=== PATIENT | female | born 1990 | race Caucasian/White ===

== ENCOUNTER 2021-11-03 05:10 | Emergency (ER) | payer MEDICAID ==
[~2021-11-03] VITALS: Ht 172.7 cm; Wt 83.9 kg
--- NOTE | 2021-11-03 05:30 | NUR ---
LYNDON GERMAN FOR COCCYX EXAM.
[2021-11-03] MEDS ORDERED: IV NORMAL SALINE 1000 ML BAG IV ONE (05:45)
[2021-11-03] MEDS ORDERED: VANCOMYCIN 1G/D5W 200 ML PIGGYBACK IV ONE (05:45)
[2021-11-03] MEDS ORDERED: KETOROLAC TROMETHAMINE 30 MG INJ IVP ONE (05:45)
--- NOTE | 2021-11-03 06:03 | NUR ---
Patient A/Ox4, patient ambulated with steady gait. Patient came for c/o lower extremity swelling and abscess in coccyx area with weeping. Patient reports IV drug abuse in the past but has recently stopped. Patient in bed at lowest position, sr upx2, call light within reach. Fall and safety precautions implemented per protocol.
[2021-11-03 06:34] LABS: HEMATOCRIT 30.3 % (31.2-41.9); MEAN CORPUSCULAR HEMOGLOBIN 29.6 uug (24.7-32.8); MEAN CORPUSCULAR VOLUME 88.2 fL (75.5-95.3); PLATELET COUNT (AUTO) 347 K/uL (179-408)
[2021-11-03] MEDS: MORPHINE SULFATE 4 MG/1 ML DISP.SYRIN IV ONE ×2 (06:34→07:48)
[2021-11-03] MEDS ORDERED: MORPHINE SULFATE 4 MG/1 ML DISP.SYRIN ONE (06:42)
[2021-11-03] MEDS ORDERED: VANCOMYCIN IV 200 ML ONE (06:42)
[2021-11-03 06:47] LABS: BILIRUBIN,DIRECT 0.1 mg/dL (0.0-0.2); BILIRUBIN,TOTAL 0.4 mg/dL (0.2-1.0); CREATININE 0.6 mg/dL (0.6-1.3); POTASSIUM 3.6 mmol/L (3.5-5.1); TOTAL PROTEIN, SERUM 8.5 g/dL (6.4-8.2)
--- NOTE | 2021-11-03 07:32 | NUR ---
Sitemasher/[employer]bel Monkey WAS NOTIFIED. HE IS ON HIS WAY BUT STUCK IN TRAFFIC. HE WILL BE HERE TYREL
--- NOTE | 2021-11-03 07:39 | NUR ---
Assumed care of patient from day shift nurse. Receieved patient lying in bed. Asleep at this time. Appears comfortable. VS WNL.
[2021-11-03] MEDS ORDERED: CLIN300C12 PO (09:05)
[2021-11-03] MEDS ORDERED: CLINDAMYCIN HCL 150 MG CAPSULE PO ONE (09:15)
--- NOTE | 2021-11-03 09:21 | NUR ---
Patient discharged to home in stable condition. Written and verbal after care instructions given. Patient verbalizes understanding of instructions. Stressed follow up or return to ER for worsening s/s. Patient ambulated from the ER with steady gait. All belongings with patient.
[2021-11-03 09:23] VITALS: BP 103/66
[2021-11-03] MEDS ORDERED: CLINDAMYCIN HCL 300 MG CAPSULE ONE (09:31)
== END 2021-11-03 09:24 | disposition home or self-care (01) ==
LOC: ER 05:18
DX: L03.115 Cellulitis of right lower limb (principal); F15.10 Other stimulant abuse, uncomplicated; F17.210 Nicotine dependence, cigarettes, uncomplicated
CPT/HCPCS: 36415; 80048; 80076; 83605; 84702; 85025; 93971; 96365; 99284; J3370; A4663; J2270